=== PATIENT | male | born 1965 | race Caucasian/White ===

== ENCOUNTER 2018-07-21 06:03 | Inpatient (IN) ==
[2018-07-13 10:45] LABS: Basophils % 0.4 % (0.0-0.8); Eosinophils # 0.1 10*3/uL (0.0-0.87); Eosinophils % 1.7 % (0.00-10.9); Hematocrit 44.4 VOL% (42.0-52.0); Hemoglobin 14.6 GM/DL (14.0-18.0); Immature Granulocytes % 0.4 %; Immature Granulocytes Absolute 0.02 #; Lymphocytes # 1.6 10*3/uL (1.4-4.0); Lymphocytes % 30.8 % (21.2-54.2); Mean Corpuscular HGB Conc 32.9 GM/DL (32-36); Mean Corpuscular Hemoglobin 30 PG (27-34); Mean Corpuscular Volume 92.1 FL (87-102); Mean Platelet Volume 9.7 FL (9.6-12.0); Monocytes # 0.3 10*3/uL (0.11-0.8); Monocytes % 6.2 % (1.7-12.7); Neutrophils # 3.1 10*3/uL (1.4-7.4); Neutrophils % 60.5 % (38.7-73.9); Platelet Count 175 T/CUMM (130-400); Red Blood Count 4.82 MC/CUMM (3.8-5.5); Red Cell Distribution Width 12.7 % (9.3-17.3); White Blood Count 5.2 T/CUMM (4-12)
[2018-07-13 11:05] LABS: Calcium 9.3 MG/DL (8.5-10.1); Osmolality,Calculated 281.3 MOS/KG (273-304); Potassium 4.5 MMOL/L (3.5-5.1)
[~2018-07-21 06:03] MED LIST: ALVIMOPAN 12 MG CAPSULE PO ONE; ERTAPENEM 1,000 MG in SODIUM CHLORIDE 0.9% 100 ML IV ONE
[2018-07-21] MEDS ORDERED: ERTAPENEM 1,000 MG VIAL ONE (08:19)
[2018-07-21] MEDS ORDERED: ALVIMOPAN 12 MG CAPSULE ONE (08:19)
[2018-07-21] MEDS: LACTATED RINGERS 1,000 ML IV SCH ×4 (08:33→18:42)
[2018-07-21] MEDS ORDERED: INDIGO CARMINE 5 ML AMP ONE (09:13)
[2018-07-21] MEDS ORDERED: INDOCYANINE GREEN 25 MG VIAL IV ONE (11:17)
[2018-07-21] MEDS ORDERED: TISSUE ADHESIVE 1 EACH APPLICATOR TOP ONE (11:17)
[2018-07-21] MEDS ORDERED: ROPIVACAINE 0.5% 30 ML VIAL ONE (13:35)
[2018-07-21] MEDS ORDERED: fentaNYL 100 MCG/2 ML VIAL ONE ×2 (14:34→14:35)
[2018-07-21] MEDS ORDERED: ONDANSETRON 4 MG/2 ML VIAL ONE ×2 (14:34→14:59)
[2018-07-21] MEDS ORDERED: SEVOFLURANE 1 UNIT/15 MINUTE INH ONE (14:34)
[2018-07-21] MEDS ORDERED: DEXAMETHASONE 10 MG/1 ML VIAL ONE (14:34)
[2018-07-21] MEDS ORDERED: KETOROLAC 30 MG/1 ML VIAL ONE (14:34)
[2018-07-21] MEDS ORDERED: MIDAZOLAM 2 MG/2 ML VIAL ONE (14:34)
[2018-07-21] MEDS ORDERED: PROPOFOL 200 MG/20 ML VIAL IV ONE (14:34)
[2018-07-21] MEDS ORDERED: ROCURONIUM 100 MG/10 ML VIAL IV ONE (14:35)
[2018-07-21] MEDS ORDERED: LACTATED RINGERS 2,000 ML IV ONE (14:35)
[2018-07-21] MEDS ORDERED: GLYCOPYRROLATE 0.4 MG/2 ML VIAL ONE (14:35)
[2018-07-21] MEDS ORDERED: NEOSTIGMINE 10 MG/10 ML VIAL ONE (14:35)
[2018-07-21] MEDS ORDERED: PHENYLEPHRINE 1 MG/10 ML SYRINGE IV ONE (14:36)
[2018-07-21] MEDS ORDERED: ONDANSETRON 4 MG/2 ML VIAL IV PRN ×2 (14:37→14:57)
[2018-07-21] MEDS ORDERED: PROMETHAZINE 25 MG/1 ML VIAL IM PRN (14:37)
[2018-07-21 14:59] LABS: Basophils % 0.1 % (0.0-0.8); Eosinophils % 0.1 % (0.00-10.9); Hematocrit 46.1 VOL% (42.0-52.0); Immature Granulocytes % 0.4 %; Immature Granulocytes Absolute 0.06 #; Lymphocytes # 1.7 10*3/uL (1.4-4.0); Lymphocytes % 11.8 % (21.2-54.2); Mean Corpuscular HGB Conc 32.5 GM/DL (32-36); Mean Corpuscular Hemoglobin 30 PG (27-34); Mean Corpuscular Volume 92.8 FL (87-102); Mean Platelet Volume 9.7 FL (9.6-12.0); Monocytes # 0.2 10*3/uL (0.11-0.8); Monocytes % 1.4 % (1.7-12.7); Neutrophils # 12.1 10*3/uL (1.4-7.4); Neutrophils % 86.2 % (38.7-73.9); Platelet Count 205 T/CUMM (130-400); Red Blood Count 4.97 MC/CUMM (3.8-5.5); Red Cell Distribution Width 12.7 % (9.3-17.3)
[2018-07-21] MEDS ORDERED: KETOROLAC 15 MG/1 ML VIAL IV SCH (15:00)
[2018-07-21] MEDS: HYDROmorphone 2 MG/1 ML VIAL IV PRN ×5 (15:00→18:30)
[2018-07-21] MEDS ORDERED: HYDROmorphone 2 MG/1 ML VIAL ONE (15:01)
[2018-07-21 15:25] LABS: Calcium 8.6 MG/DL (8.5-10.1); Osmolality,Calculated 281.4 MOS/KG (273-304); Potassium 4.3 MMOL/L (3.5-5.1)
[2018-07-21] MEDS: KETOROLAC 30 MG/1 ML VIAL IV SCH (21:27)
[2018-07-21] MEDS: ALVIMOPAN 12 MG CAPSULE PO SCH (21:27)
[2018-07-22] MEDS: LACTATED RINGERS 1,000 ML IV SCH ×2 (03:14→11:19)
[2018-07-22] MEDS: HYDROmorphone 2 MG/1 ML VIAL IV PRN ×3 (03:16→21:16)
[2018-07-22] MEDS: KETOROLAC 30 MG/1 ML VIAL IV SCH ×4 (04:31→21:18)
[2018-07-22 05:52] LABS: Basophils % 0.1 % (0.0-0.8); Hematocrit 39.5 VOL% (42.0-52.0); Hemoglobin 13.1 GM/DL (14.0-18.0); Immature Granulocytes % 0.6 %; Immature Granulocytes Absolute 0.06 #; Lymphocytes # 0.9 10*3/uL (1.4-4.0); Lymphocytes % 8.8 % (21.2-54.2); Mean Corpuscular HGB Conc 33.2 GM/DL (32-36); Mean Corpuscular Hemoglobin 30 PG (27-34); Mean Corpuscular Volume 91.6 FL (87-102); Mean Platelet Volume 9.9 FL (9.6-12.0); Monocytes # 0.7 10*3/uL (0.11-0.8); Monocytes % 6.3 % (1.7-12.7); Neutrophils # 8.9 10*3/uL (1.4-7.4); Neutrophils % 84.2 % (38.7-73.9); Platelet Count 192 T/CUMM (130-400); Red Blood Count 4.31 MC/CUMM (3.8-5.5); Red Cell Distribution Width 12.6 % (9.3-17.3); White Blood Count 10.6 T/CUMM (4-12)
[2018-07-22 06:07] LABS: Calcium 8.5 MG/DL (8.5-10.1); Osmolality,Calculated 279.5 MOS/KG (273-304); Potassium 4.3 MMOL/L (3.5-5.1)
[2018-07-22] MEDS: ASPIRIN EC 81 MG TABLET PO SCH (08:27)
[2018-07-22] MEDS: MULTIVITAMIN (CENTRUM) TABLET PO SCH (08:27)
[2018-07-22] MEDS: ALVIMOPAN 12 MG CAPSULE PO SCH ×2 (08:27→20:01)
[2018-07-22] MEDS: ENOXAPARIN 40 MG/0.4 ML SYRINGE SUBCUT SCH (08:27)
[2018-07-22] MEDS: ATORVASTATIN 10 MG TABLET PO SCH (08:27)
[2018-07-22] MEDS: DEXT 5% NACL 0.45% KCL 40 MEQ 40 MEQ/1,000 ML BAG IV SCH ×3 (09:31→21:47)
[2018-07-23] MEDS: KETOROLAC 30 MG/1 ML VIAL IV SCH ×2 (03:52→09:46)
[2018-07-23] MEDS: HYDROmorphone 2 MG/1 ML VIAL IV PRN (05:47)
[2018-07-23 06:12] LABS: Basophils % 0.3 % (0.0-0.8); Eosinophils # 0.1 10*3/uL (0.0-0.87); Eosinophils % 1.1 % (0.00-10.9); Hematocrit 37.7 VOL% (42.0-52.0); Hemoglobin 11.8 GM/DL (14.0-18.0); Immature Granulocytes % 0.5 %; Immature Granulocytes Absolute 0.03 #; Lymphocytes # 2.1 10*3/uL (1.4-4.0); Lymphocytes % 31.4 % (21.2-54.2); Mean Corpuscular HGB Conc 31.3 GM/DL (32-36); Mean Corpuscular Hemoglobin 30 PG (27-34); Mean Corpuscular Volume 94.5 FL (87-102); Mean Platelet Volume 10.3 FL (9.6-12.0); Monocytes # 0.4 10*3/uL (0.11-0.8); Monocytes % 6.2 % (1.7-12.7); Neutrophils % 60.5 % (38.7-73.9); Platelet Count 151 T/CUMM (130-400); Red Blood Count 3.99 MC/CUMM (3.8-5.5); White Blood Count 6.7 T/CUMM (4-12)
[2018-07-23 06:30] LABS: Calcium 8.3 MG/DL (8.5-10.1); Potassium 4.4 MMOL/L (3.5-5.1)
[2018-07-23 07:40] VITALS: BP 129/72
[2018-07-23] MEDS: ASPIRIN EC 81 MG TABLET PO SCH (08:56)
[2018-07-23] MEDS: MULTIVITAMIN (CENTRUM) TABLET PO SCH (08:56)
[2018-07-23] MEDS: ATORVASTATIN 10 MG TABLET PO SCH (08:57)
[2018-07-23] MEDS: ENOXAPARIN 40 MG/0.4 ML SYRINGE SUBCUT SCH (08:57)
[2018-07-23 10:08] LABS: Hematocrit 37.7 VOL% (42.0-52.0); Hemoglobin 12.4 GM/DL (14.0-18.0)
== END 2018-07-23 10:40 | disposition home or self-care (01) | DRG 330 ==
LOC: N.SDSINP 06:03 → N.OR 06:03 → N.3E 14:37
PROVIDERS: ADMIT Surgery; ATTEND Surgery